=== PATIENT | female | born 1995 | race Caucasian/White ===

== ENCOUNTER 2017-05-21 21:17 | Emergency (ER) | payer SELFPAY ==
[2017-05-21] MEDS ORDERED: ASPIRIN 81 MG TABLET, CHEWABLE PO ONE (23:25)
--- NOTE | 2017-05-21 23:26 | ER Document Report ---
ED Medical Screen (RME) - General Chief Complaint: Rib Pain Stated Complaint: CHEST PAIN Time Seen by Provider: 05/21/17 23:23 Mode of Arrival: Ambulatory Information source: Patient Notes: Patient presents complaining of left-sided chest pain that started around 2 PM today. Patient states pain is pretty steady but occasionally become sharp causing her to become dizzy and lightheaded. Patient denies any dyspnea, cough , nausea or vomiting. Patient states pain is worse when she is upright. Patient denies any abdominal tenderness. Patient does report a family history of blood clots, no history of early cardiac disease. I have greeted and performed a rapid initial assessment of this patient. A comprehensive ED assessment and evaluation of the patient, analysis of test results and completion of the medical decision making process will be conducted by additional ED providers. TRAVEL OUTSIDE OF THE [place] IN LAST 30 DAYS: No - Related Data Allergies/Adverse Reactions: No Known Allergies Allergy (Verified 05/21/17 21:41) Physical Exam - Vital signs Vitals: Temp Pulse Resp BP Pulse Ox 98 F 90 18 120/69 100 05/21/17 22:03 05/21/17 22:03 05/21/17 22:03 05/21/17 22:03 05/21/17 22:03 - Respiratory Respiratory status: No respiratory distress Chest status: Nontender - Cardiovascular Rhythm: Regular Heart sounds: S1 appreciated, S2 appreciated Course - Vital Signs Vital signs: Temp Pulse Resp BP Pulse Ox 98 F 90 18 120/69 100 05/21/17 22:03 05/21/17 22:03 05/21/17 22:03 05/21/17 22:03 05/21/17 22:03
[2017-05-21 23:47] LABS: ABSOLUTE BASOPHILS # (AUTO) 0.1 10^3/uL (0.0-0.2); ABSOLUTE EOSINOPHILS # (AUTO) 0.1 10^3/uL (0.0-0.6); ABSOLUTE LYMPHOCYTES (AUTO) 1.4 10^3/uL (0.5-4.7); ABSOLUTE MONOCYTES (AUTO) 0.6 10^3/uL (0.1-1.4); ABSOLUTE NEUT (AUTO) 6.3 10^3/uL (1.7-8.2); BASOPHILS % (AUTO) 0.6 % (0-2); EOSINOPHILS % (AUTO) 0.6 % (0-6); HEMATOCRIT 37.9 % (36.0-47.0); HEMOGLOBIN 12.9 g/dL (12.0-15.5); LYMPHOCYTES % (AUTO) 16.4 % (13-45); MEAN CORPUSCULAR HEMOGLOBIN 28.7 pg (27.0-33.4); MEAN CORPUSCULAR VOLUME 85 fl (80-97); PLATELET COUNT 213 10^3/uL (150-450); RED BLOOD COUNT 4.48 10^6/uL (3.72-5.28); RED CELL DISTRIBUTION WIDTH 13.8 % (11.5-14.0); SEGMENTED NEUTROPHILS % (AUTO) 75.4 % (42-78); TOTAL CELLS COUNTED % (AUTO) 100 %; WHITE BLOOD COUNT 8.4 10^3/uL (4.0-10.5)
[2017-05-22 00:03] LABS: ALANINE AMINOTRANSFERASE 25 U/L (9-52); ALBUMIN 4.9 g/dL (3.5-5.0); ALKALINE PHOSPHATASE 55 U/L (38-126); ANION GAP 10 (5-19); ASPARTATE AMINO TRANSFERASE 21 U/L (14-36); BILIRUBIN,DIRECT 0.1 mg/dL (0.0-0.4); BILIRUBIN,TOTAL 0.4 mg/dL (0.2-1.3); BLOOD UREA NITROGEN 19 mg/dL (7-20); CALCIUM 9.9 mg/dL (8.4-10.2); CARBON DIOXIDE 26 mmol/L (22-30); CHLORIDE 105 mmol/L (98-107); CREATINE KINASE 78 U/L (30-135); GLUCOSE 90 mg/dL (75-110); POTASSIUM 4.1 mmol/L (3.6-5.0); SODIUM 140.9 mmol/L (137-145); TOTAL PROTEIN 7.4 g/dL (6.3-8.2)
[2017-05-22 00:15] LABS: CREATINE KINASE MB < 0.22 ng/mL (<4.55); TROPONIN I < 0.012 ng/mL
--- NOTE | 2017-05-22 01:13 | RADIOLOGY REPORT (SQ) ---
EXAM DESCRIPTION: CHEST PA/LAT CLINICAL HISTORY: 21 years, Female, cp COMPARISON: None. NUMBER OF VIEWS: 2 FINDINGS: Normal lung volume, clear parenchyma, normal cardiac silhouette, and intact bony thorax. IMPRESSION: No acute cardiopulmonary findings.
[2017-05-22] MEDS ORDERED: MAG HYDROX/AL HYDROX/SIMETH SUSP 30 ML UDCUP PO ONE (01:14)
[2017-05-22] MEDS ORDERED: METOCLOPRAMIDE HCL ORAL SOLN 10 MG/10 ML UDCUP PO ONE (01:14)
[2017-05-22] MEDS ORDERED: LIDOCAINE 2% VISCOUS SOLN 20 ML UDCUP PO ONE (01:14)
[2017-05-22] MEDS ORDERED: DEXAMETHASONE SOD PHOS INJ 10 MG/1 ML VIAL IM ONE (02:55)
--- NOTE | 2017-05-22 02:57 | ER Document Report ---
ED General - General Chief Complaint: Rib Pain Stated Complaint: CHEST PAIN Time Seen by Provider: 05/21/17 23:23 Mode of Arrival: Ambulatory Notes: Patient is a 21-year-old female that comes emergency department for chief complaint of pain chest pain across the left side of her chest. Symptoms started around 2 PM this afternoon, she states she was lying down when symptoms started, she states that occasionally it is sharp, pain is constant, nonradiating. She points to her lower ribs as the area of pain. She denies trauma, shortness of breath, cough, vomiting, or history of the same. She states she has been evaluated for palpitations in the past including with a Holter monitor but was told that there was nothing wrong. She denies history of anxiety. She has an IUD, family history includes blood clot but no early cardiac disease. She does not smoke, she denies recreational drugs or alcohol. Significant other at bedside. TRAVEL OUTSIDE OF THE [place] IN LAST 30 DAYS: No - Related Data Allergies/Adverse Reactions: No Known Allergies Allergy (Verified 05/21/17 21:41) Past Medical History - General Information source: Patient - Social History Smoking Status: Never Smoker Chew tobacco use (# tins/day): No Frequency of alcohol use: None Drug Abuse: None Lives with: Family Family History: Reviewed & Not Pertinent Patient has suicidal ideation: No Patient has homicidal ideation: No - Medical History Medical History: Negative Renal/ Medical History: Denies: Hx Peritoneal Dialysis Surgical Hx: Negative - Immunizations Immunizations up to date: Yes Hx Diphtheria, Pertussis, Tetanus Vaccination: Yes Review of Systems - Review of Systems Constitutional: No symptoms reported EENT: No symptoms reported Cardiovascular: See HPI Respiratory: See HPI Gastrointestinal: See HPI Genitourinary: No symptoms reported Female Genitourinary: No symptoms reported Musculoskeletal: No symptoms reported Skin: No symptoms reported Hematologic/Lymphatic: No symptoms reported Neurological/Psychological: No symptoms reported Physical Exam - Vital signs Vitals: Temp Pulse Resp BP Pulse Ox 98 F 90 18 120/69 100 05/21/17 22:03 05/21/17 22:03 05/21/17 22:03 05/21/17 22:03 05/21/17 22:03 Interpretation: Normal - General General appearance: Appears well, Alert - HEENT Head: Normocephalic, Atraumatic Eyes: Normal Conjunctiva: Normal Extraocular movements intact: Yes Eyelashes: Normal Pupils: PERRL Nasal: Normal Mouth/Lips: Normal Mucous membranes: Normal Pharynx: Normal Neck: Normal - Respiratory Respiratory status: No respiratory distress Chest status: Tender - Tenderness over the left lower ribs anteriorly, no erythema, crepitus, swelling, or other abnormality noted, normal chest exam otherwise Breath sounds: Normal. No: Decreased air movement, Wheezing Chest palpation: Normal - Cardiovascular Rhythm: Regular Heart sounds: Normal auscultation Murmur: No - Abdominal Inspection: Normal Distension: No distension Bowel sounds: Normal Tenderness: Nontender Organomegaly: No organomegaly - Back Back: Normal, Nontender - Extremities General upper extremity: Normal inspection, Nontender, Normal color, Normal ROM , Normal temperature General lower extremity: Normal inspection, Nontender, Normal color, Normal ROM , Normal temperature, Normal weight bearing. No: Irma's sign - Neurological Neuro grossly intact: Yes Cognition: Normal Orientation: AAOx4 [place] Coma Scale Eye Opening: Spontaneous [place] Coma Scale Verbal: Oriented [place] Coma Scale Motor: Obeys Commands Fabi Coma Scale Total: 15 Speech: Normal Motor strength normal: LUE, RUE, LLE, RLE Sensory: Normal - Psychological Associated symptoms: Normal affect, Normal mood - Skin Skin Temperature: Warm Skin Moisture: Dry Skin Color: Normal Course - Re-evaluation Re-evalutation: EKG sinus rhythm with no T-wave inversions or ST segment changes in consecutive leads. LA interval and QTC are normal. CBC, chemistry, troponin from triage reviewed and are unremarkable. D-dimer tested and is negative. Chest x-ray is unremarkable. GI cocktail did not change patient's symptoms at all. Patient is well-appearing on exam. She winces with palpation of the left lower ribs. No abdominal tenderness. No tachypnea, hypoxia, tachycardia, or signs of distress. Discussed workup details with patient at length, she states that she has been evaluated by cardiology already, had a Holter monitor, had no abnormal results up to this point. Discussed different options with patient, because of her tenderness over the rib area of her dexamethasone which she accepted, discussed follow-up and return precautions in detail, patient states satisfaction and agreement with plan. - Vital Signs Vital signs: Temp Pulse Resp BP Pulse Ox 98.0 F 70 16 107/54 L 97 05/22/17 03:11 05/22/17 03:11 05/22/17 03:11 05/22/17 03:11 05/22/17 03:11 - Laboratory Result Diagrams: 05/21/17 23:30 05/21/17 23:30 Discharge - Discharge Clinical Impression: Left sided chest pain Condition: Stable Disposition: HOME, SELF-CARE Additional Instructions: Your workup tonight and your evaluation do not show any concerning abnormalities. The exact cause of your pain is uncertain at this time, follow-up with primary care for additional evaluation and management. Return the emergency department if you worsen including passing out, fever, vomiting, or any other concerning or worsening symptoms. Referrals: BASSAM THOMPSON MD [ACTIVE STAFF] - Follow up in 1 week FAINA LAW MD [ACTIVE STAFF] - Follow up in 1 week
[2017-05-22 03:13] VITALS: BP 107/54
--- NOTE | 2017-05-22 07:47 | EKG REPORT ---
SEVERITY:- BORDERLINE ECG - SINUS RHYTHM PROMINENT P WAVES, NONDIAGNOSTIC : Confirmed by: Jared Mares MD 22-May-2017 07:45:47
== END 2017-05-22 03:11 | disposition home or self-care (01) ==
LOC: ER 21:17
DX: R07.9 Chest pain, unspecified (principal); R07.81 Pleurodynia
CPT/HCPCS: 93005; 99284; 36415; 82553; 82550; 84703; 85025; 80053; 84484; 85379; 71046; 93010; J3490; J1100

== ENCOUNTER → 2017-08-19 | Outpatient (CLI) | payer MEDICAID ==
[2017-08-19 08:03] LABS: HEMATOCRIT 40.7 % (36.0-47.0); MEAN CORPUSCULAR HGB CONC 34.4 g/dL (32.0-36.0); MEAN CORPUSCULAR VOLUME 87 fl (80-97); PLATELET COUNT 231 10^3/uL (150-450); RED BLOOD COUNT 4.67 10^6/uL (3.72-5.28); RED CELL DISTRIBUTION WIDTH 12.2 % (11.5-14.0); WHITE BLOOD COUNT 4.4 10^3/uL (4.0-10.5)
[2017-08-19 08:24] LABS: ANION GAP 12 (5-19); BLOOD UREA NITROGEN 13 mg/dL (7-20); CARBON DIOXIDE 27 mmol/L (22-30); CHLORIDE 107 mmol/L (98-107); CHOLESTEROL 169.01 mg/dL (0-200); GLUCOSE 100 mg/dL (75-110); POTASSIUM 4.4 mmol/L (3.6-5.0); SODIUM 145.8 mmol/L (137-145); TRIGLYCERIDES 84 mg/dL (<150)
[2017-08-19 08:39] LABS: DIRECT LDL 96 mg/dL (<100)
== END ==
LOC: OD 07:17
PROVIDERS: ATTEND Internal Medicine Cardiovascular Disease
DX: R07.9 Chest pain, unspecified (principal)
CPT/HCPCS: 36415; 80048; 80061; 83735; 84443; 85027